=== PATIENT | female | born 1960 | race Caucasian/White ===

== ENCOUNTER 2018-08-24 11:40 | Emergency (ER) | payer OTHER | END 2018-08-24 12:56 | disposition home or self-care (01) | LOC: FTE 11:40 | DX: M79.601 Pain in right arm (principal) | CPT/HCPCS: 29125; 99282-25 ==

== ENCOUNTER 2018-11-22 09:05 | Day surgery (SDC) | payer OTHER ==
[2018-11-22] MEDS ORDERED: MIDAZOLAM 1 MG/ML 2 ML INJ (10:42)
[2018-11-22] MEDS ORDERED: FENTAnyl 50 MCG/ML VIAL (10:42)
== END 2018-11-22 11:43 | disposition home or self-care (01) ==
LOC: GIL 09:05
DX: Z12.11 Encounter for screening for malignant neoplasm of colon (principal); D12.4 Benign neoplasm of descending colon; K57.30 Diverticulosis of large intestine without perforation or abscess without bleeding
CPT/HCPCS: 45380; 88305